=== PATIENT | male | born 1965 | race Caucasian/White ===

== ENCOUNTER 2018-11-03 08:30 | Day surgery (SDC) | payer OTHER ==
[~2018-11-03] VITALS: Ht 170.2 cm; Wt 89.4 kg
[~2018-11-03 08:30] MED LIST: LISI10TA4 PO; NS 1,000 ML IV ONE; PROPOFOL 200 MG/20 ML VIAL As Ordered ONE
--- NOTE | 2018-11-03 10:18 | ROOR ---
Patient Name: Erwin Paz Procedure Date: 11/03/2018 9:55 AM Date of : 1965 Age: 53 Room: [facility] Gender: Male Note Status: Finalized Procedure: Total Colonoscopy to Cecum + Hot Snare Polypectomy + Hemoclips Indications: Screening for colorectal malignant neoplasm Providers: Ángel Green MD Referring MD: [facility] [place], Admin. Requesting Provider: Medicines: Monitored Anesthesia Care Complications: No immediate complications. Procedure: Pre-Anesthesia Assessment: - The heart rate, respiratory rate, oxygen saturations, blood pressure, adequacy of pulmonary ventilation, and response to care were monitored throughout the procedure. The Colonoscope was introduced through the anus and advanced to the cecum, identified by appendiceal orifice and ileocecal valve. The colonoscopy was performed without difficulty. The patient tolerated the procedure well. The quality of the bowel preparation was excellent. Findings: The perianal and digital rectal examinations were normal. Non-bleeding internal hemorrhoids were found during retroflexion. The hemorrhoids were small and Grade I (internal hemorrhoids that do not prolapse). A medium polyp was found at 40 cm proximal to the anus. The polyp was sessile. The polyp was removed with a hot snare. Resection and retrieval were complete. To prevent bleeding after the polypectomy, two hemostatic clips were successfully placed (MR conditional). There was no bleeding at the end of the procedure. The exam was otherwise without abnormality on direct and retroflexion views. Impression: - Non-bleeding internal hemorrhoids. - One medium polyp at 40 cm proximal to the anus, removed with a hot snare. Resected and retrieved. Clips (MR conditional) were placed. - The examination was otherwise normal on direct and retroflexion views. - The exam was otherwise normal to the cecum. Recommendation: - Patient has a contact number available for emergencies. The signs and symptoms of potential delayed complications were discussed with the patient. Return to normal activities tomorrow. Written discharge instructions were provided to the patient. - High fiber diet. - Discharge patient to home. - Continue present medications. - Await pathology results. - Telephone GI clinic for pathology results in 1 week. - Repeat colonoscopy for surveillance based on pathology results. - Return to referring physician. - The findings and recommendations were discussed with the patient's family. Ángel Green MD Ángel Green MD 11/03/2018 10:18:21 AM Electronically signed by Ángel Green MD Number of Addenda: 0 Note Initiated On: 11/03/2018 9:55 AM Estimated Blood Loss: Estimated blood loss: none.
[2018-11-03 10:54] VITALS: BP 142/93
[2018-11-03] MEDS ORDERED: PROPOFOL 200 MG/20 ML VIAL As Ordered ONE (11:04)
== END 2018-11-03 10:57 | disposition home or self-care (01) ==
LOC: M OPP 08:30
PROVIDERS: ATTEND Internal Medicine Gastroenterology
DX: Z12.11 Encounter for screening for malignant neoplasm of colon (principal); D12.6 Benign neoplasm of colon, unspecified; K64.0 First degree hemorrhoids; I10 Essential (primary) hypertension; F17.210 Nicotine dependence, cigarettes, uncomplicated; Z79.899 Other long term (current) drug therapy; Z88.0 Allergy status to penicillin

== ENCOUNTER → 2019-02-05 | Outpatient (CLI) | payer OTHER ==
[~2019-02-05] MED LIST changes: -NS 1,000 ML IV ONE; -PROPOFOL 200 MG/20 ML VIAL As Ordered ONE
--- NOTE | 2019-02-07 15:20 | SLEEPCENT ---
DATE OF STUDY: 02/05/2019 ORDERED BY: Jovi Bourgeois PA-C Nocturnal polysomnography was performed for evaluation of sleep physiology in this patient with a history of snoring and excessive somnolence. 8 hours and 52 minutes of data were reviewed. There were 318 minutes of sleep identified. Sleep latency was mildly prolonged at 72.5 minutes. Rapid eye movement (REM) latency was more so prolonged at 188 minutes. Sleep architecture showed some fragmentation and poor progression with frequent arousals. Overall sleep efficiency was 61.3%. There were 2 REM cycles noted. The electrocardiogram showed a sinus rhythm throughout with an average heart rate of 60 beats per minute. Rate ranged 40-80 beats per minute. Electroencephalogram (EEG) showed some alpha intrusion into the non-REM stages. No focal events were identifie, and there were normal waveforms for awake and sleep. There were 42 respiratory events identified of 10 seconds in duration or greater for an apnea-hypopnea index of 7.9. The events were obstructive, not exclusive to sleep stage nor body posture. Arousals from respiratory events when arousals from snoring were included occurred 10 times per hour. There were no sleep substantial oxygen desaturations seen. There was some activity in the limb leads; 2 trains of 30 events were identified and limb movement arousal index was 6.4. IMPRESSION: Obstructive sleep apnea syndrome (G47.33). Apnea-hypopnea index 7.9. RECOMMENDATIONS: The patient should be encouraged to return to the sleep disorder center for pressure therapy. In the interim, alcohol and sedative avoidance should be practiced and caution exercised during the operation of motor vehicles.
== END ==
LOC: M SLEEP 20:00
PROVIDERS: ATTEND Physician Assistant Medical
DX: G47.33 Obstructive sleep apnea (adult) (pediatric) (principal)

== ENCOUNTER → 2021-07-29 | Outpatient (CLI) | payer OTHER ==
[~2021-07-29] MED LIST changes: +ASPI81TA26 PO; +ATOR1TAB21 PO; +HYDR12CA PO; +LISI10TA22 PO; -LISI10TA4 PO; +PROAAER10 INH
== END ==
LOC: M LABSMTC 11:09
PROVIDERS: ATTEND Anesthesiology
DX: Z01.818 Encounter for other preprocedural examination (principal); Z11.52 Encounter for screening for COVID-19

== ENCOUNTER 2021-08-02 07:52 | Day surgery (SDC) | payer OTHER ==
[~2021-08-02] VITALS: Ht 170.2 cm; Wt 91.1 kg
[~2021-08-02 07:52] MED LIST changes: +BUPIVACAINE HCL 0.5% 30ML VIAL As Ordered ONE; +GENTAMICIN SULF 80MG/2ML VIAL As Ordered ONE; +LIDOCAINE 2% MDV 20ML VIAL As Ordered ONE; +dexameTHASONE 4 MG/ML 1ML VIAL (J1100 PER 1MG) As Ordered ONE
[2021-08-02] MEDS ORDERED: LIDOCAINE 2% 100MG/5ML SDV (FOR ANES.) As Ordered ONE (08:06)
[2021-08-02] MEDS ORDERED: MIDAZOLAM INJ 2MG/2ML VIAL (J2250 PER 1MG) As Ordered ONE (08:06)
[2021-08-02] MEDS ORDERED: propofoL 200 MG/20 ML VIAL As Ordered ONE (08:06)
[2021-08-02] MEDS ORDERED: fentaNYL 100 MCG/2 ML INJECTION As Ordered ONE (08:06)
[2021-08-02] MEDS ORDERED: INSULIN LISPRO (NovoLOG) PER UNIT SC PRN (08:20)
[2021-08-02] MEDS ORDERED: LR 1,000 ML IV SCH (08:20)
[2021-08-02 08:22] VITALS: BP 131/89
== END 2021-08-02 13:18 | disposition home or self-care (01) ==
LOC: M SDC 07:52
PROVIDERS: ATTEND Podiatrist
DX: Z53.29 Procedure and treatment not carried out because of patient's decision for other reasons (principal)

== ENCOUNTER → 2022-02-27 | Outpatient (REF) ==
[~2022-02-27] MED LIST changes: -BUPIVACAINE HCL 0.5% 30ML VIAL As Ordered ONE; -GENTAMICIN SULF 80MG/2ML VIAL As Ordered ONE; -LIDOCAINE 2% MDV 20ML VIAL As Ordered ONE; -dexameTHASONE 4 MG/ML 1ML VIAL (J1100 PER 1MG) As Ordered ONE
== END ==
LOC: M PLAIMG 09:54
PROVIDERS: ATTEND Internal Medicine
DX: R06.02 Shortness of breath (principal)

== ENCOUNTER → 2023-11-24 | Outpatient (REF) | LOC: M PLAIMG 10:26 | PROVIDERS: ATTEND Internal Medicine | DX: R06.02 Shortness of breath (principal) ==